=== PATIENT | female | born 1945 | race Two or more races ===

== ENCOUNTER 2019-05-03 06:33 | Day surgery (SDC) | payer OTHER ==
[~2019-05-03 06:33] MED LIST: LOSARTAN-HCTZ1 EACH PO; NEURONTIN600 MG PO; SIMVASTATIN20 MG PO; VOLTAREN-XR100 MG PO; ZYRTEC10 M3 PO
[2019-05-03] MEDS ORDERED: COLACE100 MG PO (09:09)
[2019-05-03] MEDS ORDERED: PERCOCET 5-3251 EACH PO (09:09)
== END 2019-05-03 16:25 | disposition home or self-care (01) ==
LOC: CIR.AMB 06:33
DX: K64.8 Other hemorrhoids (principal)